=== PATIENT | male | born 1960 | race Caucasian/White ===

== ENCOUNTER 2016-11-30 00:40 | Inpatient (IN) | payer MEDICARE ==
[~2016-11-30] VITALS: Ht 170.2 cm; Wt 165.0 kg
--- NOTE | ~2016-11-30 | DS ---
PATIENT'S NAME: EDUAR ALCALA [facility] AGE: 56 Y [address] ROOM: [id number] [place], [place] [address] LOCATION: GPCU ADMIT DATE: 11/30/2016 Discharge Summary DISCHARGE DATE: 12/03/2016 FAMILY PHYSICIAN: Sunny Mulligan MD ATTENDING PHYSICIAN: Dov Contreras PRINCIPAL DISCHARGE DIAGNOSIS: Left cerebellar stroke (posterior inferior cerebellar artery distribution). SECONDARY DIAGNOSES: 1. Disequilibrium, secondary to cerebellar stroke. 2. Essential hypertension. 3. Chronic hypoxic respiratory failure, nocturnal hypoxemia documented during this admission by trend ox 12/02/2016 and 12/03/2016 qualifying for home oxygen therapy. In addition, he desaturates best with ambulation and at rest, needs 24-hour oxygen therapy. 4. Obstructive sleep apnea and likely obesity hypoventilation syndrome. 5. Morbid obesity. 6. Chronic pain syndrome. 7. Acute abdominal pain with transient ileus. 8. New diagnosis of diabetes mellitus, type 2. 9. Ascending aorta moderately dilated at 4.4 cm. CONSULTATIONS: 1. Dr. Randall of Neurology. 2. Dr. Soliman of the acute rehab department. BRIEF HISTORY: Mr. Alcala is a 56-year-old, morbidly obese, male who had been traveling and was in [place] where he spent the night in a hotel and was unable to get his balance. He presented to a hospital there and CT of his head was negative. They wanted to observe him, but he left and drove to [place]. So, he will be closer to home and presented to our hospital on the . He was here and presented with difficulty with his balance tending to sway to the right. He denied vertiginous symptoms. He did not have any ringing in the ears or hearing loss. He did not have chest pain. He had some history of shortness of breath, but not at the time of presentation. MRI was obtained and Dr. Randall was consulted. He was started on aspirin and statin. He had not been on aspirin prior to admission to the hospital. He was found to be hypoxic. He was not started on nasal cannula and treated with his home CPAP settings. The patient had hemoglobin A1c, which was found to be 6.5. He was advised that this is diagnostic of diabetes. He was seen by the music educator this morning. He was instructed in diet and exercise by the educator and myself. He is advised to eat low-glycemic index foods and have a low-carb PATIENT'S NAME: EDUAR ALCALA [facility] AGE: 56 Y [address] ROOM: [id number] [place], [place] [address] LOCATION: GPCU ADMIT DATE: 11/30/2016 Discharge Summary DISCHARGE DATE: 12/03/2016 FAMILY PHYSICIAN: Sunny Mulligan MD ATTENDING PHYSICIAN: Dov Contreras A diet and increase his exercise and lose weight. He has chronic pain. He is on multiple narcotics including fentanyl patch. He was advised to discuss with Dr. Mulligan and gradually weaning these because of the risk associated with narcotic and benzo use. He remained hypoxic during the hospitalization and had a trend ox last night, which shows he requires the oxygen and even during the day as above. He will be going home on 2 L of oxygen for 24 hours. He is advised to have a retitration sleep study, so that he can have his equipment titrated with the use of oxygen. PROCEDURES: 1. Echocardiogram on 11/30/2016 technically difficult study with estimated EF of 50% to 60%, but wall motion abnormalities could not be sent. He has mild concentric LVH, diastolic function indeterminant because of an adequate evaluation. The left atrium mildly dilated with ascending aorta moderately dilated at 4.4 cm. 2. Carotid artery Dopplers. Right internal carotid artery with mild plaque at 1% to 39% stenosis and same on the left. The right and left vertebral arteries had the antegrade flow. Because of the dilated aortic root, I have recommended that he see a head filter tank tender helper. Since he lives in [place], he and his elected to see Dr. Almanza when he has clinic hours in [place] regarding his dilated aortic root. The patient and his were in agreement with the plan. So, we discussed in detail at his bedside this afternoon. INSTRUCTIONS AT DISCHARGE: Diet: ADA 2000 calories with 2 g sodium restriction. Activity: As tolerated with a walker. FOLLOWUP: With Dr. Mulligan, his PCP, hopefully this week, but if not, by next Friday; Dr. Odonnell in 2 weeks; Dr. Randall in 1 month; Dr. Almanza of Cardiology in [place] within the next month; and he should return to [place] for repeat retitration polysomnography because of suspected inadequate pressure currently and so that equipment can be updated with bleeding in oxygen. MEDICATIONS AT THE TIME OF DISCHARGE: 1. Aspirin 81 mg p.o. daily. 2. Lipitor 80 mg p.o. q.h.s. 3. Carbidopa/levodopa 2 tablets q.h.s. 4. Fentanyl 25 mcg patch. 5. Ibuprofen 800 mg every 8 hours p.r.n. pain. 6. Prednisone that he was started on when he was admitted here has been stopped. PATIENT'S NAME: EDUAR ALCALA [facility] AGE: 56 Y [address] ROOM: [place] [address] [facility] ADMIT DATE: 11/30/2016 Discharge Summary DISCHARGE DATE: 12/03/2016 FAMILY PHYSICIAN: Sunny Mulligan MD ATTENDING PHYSICIAN: Dov Contreras 7. I will not give him any inhalers. His lungs are clear today and he may need pulmonary evaluation as an outpatient. 8. He can take Tylenol p.r.n. 9. Alprazolam 0.25 mg p.o. daily p.r.n. He is also encouraged to wean this. 10. Dilaudid 4 mg 1 tablet every 8 hours and wean further as tolerated. 11. He can take Tums for indigestion. 12. He is given a script for the Contour Next EZ meter strips. He is to check his glucose twice a day. He is being given a script for a front- wheeled walker because of his disequilibrium. CONDITION AT DISCHARGE: Improved, good. OTHER INSTRUCTIONS: Include no driving or alcohol use until next evaluation by Dr. Odonnell. Greater than 30 minutes was spent in the discharge process. ABHIJIT PERAZA MD LM/modl /[id number] CC: MD Sunny Wheeler MD Daniel J McGowan MD Larry R Mallin, MD d: 12/04/16 0235 t: 12/06/16 1849, DISCHARGE SUMMARY
--- NOTE | ~2016-11-30 | CON ---
PATIENT'S NAME: EDUAR ALCALA [facility] AGE: 56 Y [address] ROOM: [id number] [place], [place] [address] [facility] ADMIT DATE: 11/30/2016 Consultation DISCHARGE DATE: FAMILY PHYSICIAN: Sunny Mulligan MD ATTENDING PHYSICIAN: BRENT PONCE DATE OF CONSULTATION: 11/30/2016 REFERRING PHYSICIAN: VIVI CUELLAR MD The patient was seen on neurologic consultation on 11/30/2016 at 6:00 p.m. HISTORY OF PRESENT ILLNESS: I was asked to see Mr. Alcala who is a 56-year-old male patient essentially with a history of obstructive sleep apnea, BiPAP therapy during the nighttime, he also has a history of hypertension. The patient states that he was on a trip to [place] to visit a friend when he left the [facility] area and ended up in [place] on early Friday morning. He was in a hotel in [place] and woke up in the middle of the instrument setter to use the bathroom and suddenly he noted he was having difficulty with his balance. He said he was tending to fall towards one side he believes towards the right-side. He also complained about some subtle weakness on his right-side as well as dizziness. The dizziness was associated with what sounds like the vertigo with room spinning and him nearly having to nearly going to pass out. He states that he denied any vision problems such as double vision, but he was having difficulty with focusing on reading. He denied any facial numbness, but he did feel that his voice was a bit slurred over the past 24-hours so that he still is experiencing some mild dizziness not necessarily with head change position. He is noted to have no evidence of any focal weakness on exam and only a very subtle sign of dysmetria on [id number]-[id number]. Denied any sensory numbness to his hemiface or to his body. The patient was able to stand up, walk around slowly, and did not have worsening of his symptoms, but he did complain about a tendency to lean towards the right, he has actually been doing better. He says that he did have a headache in the back portion of his head noted on the day during Friday when he decided to come back to our area and check into the ER. The patient was sent for a MRI of the brain on the 30 of November here in our hospital, which found evidence for an acute stroke into the left posteroinferior cerebellar artery circulation that being involving the inferior portion of the left lobe of the cerebellum and connections towards the medulla. There did not appear to be any diffusion-weighted imaging prolongation in the medulla itself or elsewhere in the brainstem. The size of the stroke was fairly large around 5-cm with a bit of mild effacement of the adjacent cortical sulci. However, there is no evidence of any compression on to the ventricular system of the brain that would lead toward hydrocephalus. There was no noted mass effect essentially. No other findings were seen in the brain. No hemorrhage was seen in the area of the stroke or other areas of PATIENT'S NAME: EDUAR ALCALA [facility] AGE: 56 Y [address] ROOM: [id number] [place], [place] [address] [facility] ADMIT DATE: 11/30/2016 Consultation DISCHARGE DATE: FAMILY PHYSICIAN: Sunny Mulligan MD ATTENDING PHYSICIAN: BRENT PONCE A stroke was seen throughout the brain. PRIOR MEDICAL HISTORY: Obstructive sleep apnea, hypertension, morbid obesity, he uses a BiPAP mask on a daily basis. He denies having pain in the back of his head from the strap with the mask. SOCIAL HISTORY: He denies any alcohol use. He denies smoking, but he occasionally chews tobacco. FAMILY HISTORY: Consistent with coronary artery disease in his mother and diabetes also in mother. MEDICATIONS: Currently, include: 1. Lipitor 80 mg p.o. daily, started in the hospital. 2. Aspirin 81 mg p.o. daily. 3. Mometasone/formoterol 2 puffs b.i.d. inhalation p.r.n. REVIEW OF SYSTEMS: The patient has essentially history of hypertension well-controlled. He did not present with a very high blood pressure here, blood pressure is maintained in 130 systolic range. He presented on Friday instrument setter with new-onset of vertigo with a gait impairment, tendency to be wide-based gait and falling towards the right. He experienced some nauseousness and vomiting though he is feeling better currently. He is found to have an evidence of an acute stroke into the inferior lobe of the left hemisphere of the cerebellum. The extension of the stroke did not appear to affect the brainstem though likely inferior peduncle, attachments to the brainstem are involved due to the patient having vertiginous symptoms, which are very common in pica syndrome. Did not have any hemifacial sensory loss or hemibody loss of sensation. He denies any focal weakness. He does complain about subtle problem with his vision and perhaps skew deviation on looking towards the right. PHYSICAL EXAMINATION: VITAL SIGNS: Showed a pulse of 78 and regular, occasional PVCs with no evidence of any arrhythmia, respiration rate 16, blood pressure 138/78, and temperature is afebrile. NEUROLOGIC: Cranial nerves: Pupils are equal and reactive to light and accommodation. On right gaze, there is a mild complaint of skew deviation seen 2 finger hoyw-ys-clfm only on right gaze. There is no loss of vision in his visual field. I did not appreciate any ophthalmoplegia. There was no nystagmus seen on exam. There was normal facial symmetry and sensation in V1 PATIENT'S NAME: EDUAR ALCALA [facility] AGE: 56 Y [address] ROOM: [address] [address] LOC[facility]: [facility] ADMIT DATE: 11/30/2016 Consultation DISCHARGE DATE: FAMILY PHYSICIAN: Sunny Mulligan MD ATTENDING PHYSICIAN: BRENT PONCE through V3 distribution. Neck essentially supple on flexion and extension. He did have tenderness in the posterior portion of the neck somewhat more in the back occiput extending to the left paraspinal muscles. Some focal tenderness just to palpation in the posterior aspect of the neck extending a few inches below the occiput. No tenderness into the shoulders or into the arms. There was full power proximally and distally in the upper and lower extremities. There was a subtle finding of dysmetria on situga-yq-tnut that is hardly noticeable presently. Rapid alternating hand movements were intact and not asymmetrical. Sensory exam revealed normal touch sensation to light touch and pinprick. Reflexes were symmetric at +1 at the biceps, triceps, brachioradialis, patella, +1. Ankle jerks were +1. Reflexes downgoing. IMPRESSION: The patient thankfully had very mild symptoms of a stroke only involving the cerebellum. Strokes are usually quite recoverable from though this is a fairly large size stroke 5-cm. Over the course of the next few days, I recommended the patient somewhat take it easy because sometimes there is some secondary swelling associated with a cerebellar stroke and they can indeed expand with some edema and block the 4th ventricle. However, there is no evidence of this on the current scan and the patient is feeling well. He does not have any symptoms that are suggestive that they are getting worse; in fact, his vertigo has improved and he has no nauseousness presently. His findings on exam are very subtle as noted by the right iidfpe-ib-bftb dysmetria. Not exactly sure as to why he has dysmetria on the right-side with the cerebellar stroke being on the left, this is often a crossed type of connection and some cerebellar findings. Does not have any hemisensory problems, which to me suggests that the brainstem did not have any infarction, the pica distribution supplies the inferior portion of the cerebellum. We did a CT angiogram to make sure there was no evidence of a dissection. The vertebral arteries appeared to be patent and no evidence of any basilar artery process. The carotid circulation appeared to be normal. Overall, the etiology for the patient's stroke is unclear, related stroke to the pica distribution is often seen here in Neurology with the patient having some injury focally, sometimes benign, even occurring many days prior to the stroke. Just by history, he said approximately 1-1/2 weeks ago, he was working doing his usual fixing of cars and he got up from underneath the car and hit his head in the back of a metal portion of the car, he did feel as though he had a headache or head pain in the back-portion of his head during the week as it is where the headache seemed to be involved during the stroke on Friday in the instrument setter. He does not have a headache presently. It is quite possible even with a normal CT angiogram to have had a small injury to the vertebral artery causing a temporary low flow state in that artery and developing a small thrombus in situ in the left vertebral and having it blocked the pica distribution and it is just a conjecture and we have no proof of this. Isolated finding of a pica stroke is almost always locally thrombotic and PATIENT'S NAME: EDUAR ALCALA [facility] AGE: 56 Y [address] ROOM: [place] [address] LOCATION: GPCU ADMIT DATE: 11/30/2016 Consultation DISCHARGE DATE: FAMILY PHYSICIAN: Sunny Mulilgan MD ATTENDING PHYSICIAN: BRENT PONCE almost never is associated with a cardioembolic event since the pica takes a very sharp turn off the vertebral artery, it is very small, it is prone to thrombosis especially if there is a sudden injury smacked to the back of the head or a sudden torsion of the neck. Overall, he will do well. He is making a good recovery, but we have to watch him somewhat closely over the next 24 to 48 hours and he could participate in physical therapy slowly. Place the patient on aspirin as well as Lipitor 80 mg p.o. daily and this for plaque stabilization for general poststroke management. I believe that he is going to do well and will make a full complete recovery from my standpoint. I would like to see the patient on neurologic follow up when he does leave the hospital sometime within the month. MD SHANE BORJAS/modl /[id number] d: 12/02/16 0000 t: 12/24/16 1609, CONSULTATION REPORT
--- NOTE | ~2016-11-30 | ER ---
PATIENT'S NAME: EDUAR ALCALA [facility] AGE: 56 Y [address] ROOM: [place], [place] [address] LOCATION: [facility] ADMIT DATE: 11/30/2016 ER/Outpatient Report DISCHARGE DATE: FAMILY PHYSICIAN: Sunny Mulligan MD ATTENDING PHYSICIAN: Mike Goldberg Admission date and time documented in the medical record. I saw the patient at 0105 hours. CHIEF COMPLAINT: Vertigo, cough, shortness of breath, headache, nausea, vomiting. HISTORY OF PRESENT ILLNESS: This patient is a 56-year-old male who about 24 hours ago at about 0300 hours on Friday morning was in a motel in [place]. He got up to go to the bathroom and could not stand because of severe vertigo. Room was spinning and he was spinning. Got nauseated and vomited multiple times. He went to the emergency department later that morning and had evaluation. He had a CT scan of the head which was negative. He had laboratory studies. He was diagnosed with acute vertigo and was started on Antivert. He has only taken one Antivert around noon. They wanted to keep him in the hospital but he wanted to come home and come to [facility] if possible to get admitted. He thus presented here for evaluation. He continues to have vertigo, dizziness. He has a generalized headache. He continues to be nauseated with intermittent vomiting. He has an audible expiratory wheeze and is short of breath. No chest pain. No fever, chills, sweats. No syncope. No fall or trauma. Just cannot stand because he has no sense of balance. Generalized headache. No eyes, ears, nose, throat, neck, or spine pain. No abdominal pain. No diarrhea. No incontinence. No joint or muscle swelling, redness, or pain. He does have intermittent bilateral lower leg edema. No history of neuro changes, psych issues, endocrine problems. The patient does have COPD, obstructive sleep apnea, and uses CPAP at night. He was 78% oximetry on room air on arrival here to the emergency department. HOME MEDICATIONS: See attached medication list. ALLERGIES: MORPHINE. SOCIAL HISTORY: Nonsmoker, nondrinker. Does chew tobacco. SIGNIFICANT PAST MEDICAL HISTORY: COPD, obstructive sleep apnea, tobacco abuse, peripheral edema, questionable PATIENT'S NAME: EDUAR ALCALA [facility] AGE: 56 Y [address] ROOM: [place] [address] LOCATION: [facility] ADMIT DATE: 11/30/2016 ER/Outpatient Report DISCHARGE DATE: FAMILY PHYSICIAN: Sunny Mulligan MD ATTENDING PHYSICIAN: Mike Goldberg congestive heart failure. OPERATIONS: Left hip surgery, tonsillectomy. REVIEW OF SYSTEMS: All systems reviewed by me are negative with the exception of those discussed in the history of present illness. PHYSICAL EXAMINATION: VITAL SIGNS: Blood pressure 160/109, pulse 69 regular, respirations 18, O2 saturation on room air is 78% oxygenating. We did give up into the mid low 90s. HEAD: Normocephalic. No abrasion, contusion, laceration, swelling of the scalp or face. EYES: Extraocular muscles intact. PERRL. Mild horizontal nystagmus. EARS: Clear TMs bilaterally. NOSE: Clear. THROAT: Clear. Mucous membranes moist. TEETH/JAW: Intact. NECK: No nuchal rigidity. No thyromegaly. No cervical adenopathy. No tenderness. SPINE: Nontender. No deformity. LUNGS: Generalized expiratory wheezes, some rhonchi, coarse cough, decreased air flow. HEART: Regular. Pulses palpable. The patient is mildly tachypneic. No chest wall or ribcage pain to palpation. ABDOMEN: Large, obese. Soft, nontender. Active bowel tones. EXTREMITIES: Without peripheral edema, cyanosis, or deformity. NEUROVASCULARLY: Intact. SKIN: Clear. No skin eruptions or rash. LABORATORY DATA AND X-RAYS: White count is 12,800, 80 segs, 12 lymphs, 6 monos, 1 eos, 1 baso. Hemoglobin is 14.9, with hematocrit of 43.4, platelet count is 306,000. PTT was 28, pro- time was 11, with an INR of 1.05. CMS was normal except for an elevated CO2 content of 34, low anion gap at 99.6. Elevated glucose 135. CPK was 176. Point of care cardiac enzymes were normal. CRP was 2.22. Thyroid was normal. ProBNP was normal at 93. Did not repeat a chest x-ray or head CT. Did not perform an EKG. EMERGENCY DEPARTMENT COURSE: Did give the patient DuoNeb respiratory nebulizer treatment here in the emergency department. Did give the patient IV Valium 4 mg and oral Antivert 25 mg here in the emergency department. PATIENT'S NAME: EDUAR ALCALA [facility] AGE: 56 Y [address] ROOM: [place], [place] [address] LOCATION: [facility] ADMIT DATE: 11/30/2016 ER/Outpatient Report DISCHARGE DATE: FAMILY PHYSICIAN: Sunny Mulligan MD ATTENDING PHYSICIAN: Mike Goldberg IMPRESSION: 1. Benign positional vertigo. 2. Exacerbation of his chronic obstructive pulmonary disease. 3. History of obstructive sleep apnea. 4. Exogenous obesity. 5. Hypertension. PLAN: The patient was given the DuoNeb respiratory nebulizer treatment in the emergency department. I did start an IV normal saline at 100 mL an hour. Gave him Valium 4 mg IV in the emergency room, Antivert 25 mg orally in the emergency room, and Zofran 8 mg IV in the emergency room for nausea and vomiting. Discussed the patient with Dr. Contreras, the hospitalist. Dr. Contreras is coming to the emergency room to evaluate the patient and admit the patient to the hospital for further evaluation and treatment. Discussion ensued with the patient concerning my findings and recommendation, he understands. MD BRITT LANG/sintial /[id number] d: 11/30/16 0357 t: 11/30/16 1809, OUTPATIENT REPORT
--- NOTE | ~2016-11-30 | HP ---
[facility] AGE: 56 Y [address] ROOM: [place] [address] LOCATION: [facility] ADMIT DATE: 11/30/2016 History & Physical DISCHARGE DATE: FAMILY PHYSICIAN: Sunny Mulligan MD ATTENDING PHYSICIAN: Mike Goldberg DATE OF SERVICE: CHIEF COMPLAINT: Imbalance and dizziness. HISTORY OF PRESENT ILLNESS: A 56-year-old, morbidly obese gentleman with past medical history of obstructive sleep apnea, COPD, who was traveling from [facility] to [place], stopped at [place] and stayed overnight in a hotel. He woke up tonight in the morning to go to the bathroom and he just could not find his balance. He said he tends to fall towards the right side. He slept in the hotel and ate in the morning. He presented to the hospital there. Basic lab work was done, which was pretty much unremarkable. CAT scan of the head was done, which was nonsignificant for any acute intracranial changes. Chest x-ray was negative. He was advised to stay in the hospital over there, but he wanted to come to [place] and stay closer to his house. On my encounter, he is saying that he is having trouble finding his balance and he tends to sway on the right side. He does not complain of that room spinning around him or he is going to pass out. He denied any pain in the ear, any ringing in the ear, or any hearing loss. He denied any chest pain. He said he does get some sometimes shortness of breath. He is not complaining of shortness of breath right now. No sputum production. No fever, no chills, no constipation, no diarrhea, no swelling in the legs. REVIEW OF SYSTEMS: All other systems reviewed and were negative except as mentioned in the HPI. ALLERGIES: NO KNOWN DRUG ALLERGIES. PAST MEDICAL HISTORY: 1. Obstructive sleep apnea. 2. Morbidly obese. 3. Hypertension. 4. COPD. SOCIAL HISTORY: Chewed tobacco in the past. PATIENT'S NAME: [facility] AGE: 56 Y [address] ROOM: [place] [address] LOCATION: [facility] ADMIT DATE: 11/30/2016 History & Physical DISCHARGE DATE: FAMILY PHYSICIAN: Sunny Mulligan MD ATTENDING PHYSICIAN: Mike Goldberg FAMILY HISTORY: Significant for diabetes and coronary artery disease in mother. MEDICATIONS: Being reconciled right now. PHYSICAL EXAMINATION: VITAL SIGNS: Blood pressure 148/74, 16, saturating 78% on room air, and had to be put on supplemental oxygen, afebrile. GENERAL: No acute distress, morbidly obese gentleman, alert and oriented x3. HEENT: Head: Atraumatic, normocephalic. Eyes: Nonicteric. No pallor. Oropharynx: Moist mucous membranes. Ear examination did not reveal any significant findings. CARDIOVASCULAR: S1, S2. No murmurs, gallops, or rubs. LUNGS: Clear to auscultation bilaterally. ABDOMEN: Obese, soft, nontender, and nondistended. Bowel sounds are present. EXTREMITIES: No clubbing, cyanosis, or edema. NEURO: No nystagmus could be elicited on [place]-Hallpike maneuver. Cranial nerves 2 through 12 are intact. No motor or sensory deficit. Both-sided cerebellar function intact. LABORATORY DATA: Lab work done in our emergency department including a CBC and CMP only showed a bicarb of 34, which was impressive. Rest of the lab work was pretty much unremarkable. ASSESSMENT AND PLAN: 1. Vertigo, likely central in origin. We are going to obtain MRI in the morning. Treat the vertigo with Benadryl and Valium in the interim. 2. Acute hypoxic respiratory failure, on chronic hypoxic respiratory failure. We are going to get ABG chest x-ray. Supplemental oxygen and home setting of CPAP. We will see what the pH level is and noninvasive ventilation if required. 3. Morbid obesity. 4. Hypertension. We will continue to monitor the blood pressure. Aspirin and Lipitor tonight. EKG will be done. Further recommendation will depend on his progress in the hospital as well as MRI findings. MD SKYE PENA/edmundo PATIENT'S NAME: EDUAR ALCALA [facility] AGE: 56 Y [address] ROOM: [place], [place] [address] LOCATION: [facility] ADMIT DATE: 11/30/2016 History & Physical DISCHARGE DATE: FAMILY PHYSICIAN: Sunny Mulligan MD ATTENDING PHYSICIAN: Mike Goldberg /[id number] D: [id number] T: [id number] HISTORY & PHYSICAL
--- NOTE | ~2016-11-30 | ENPV ---
Carotid Duplex Study Demographics Patient Name EDUAR ALCALA Date of Study 11/30/2016 Patient Number [id number] Gender Male Date of 1960 Age 56 Visit Number [id number] Height 67 Accession Number [id number] Weight 363.01 Referring Lesa Argueta MD Interpreting Dennis Bourne MD Physician Isaak Weiss MD Physician Ben Browning MD Physician Ordering Physician Lesa Argueta MD Photography And Prints Curator Forestry Fire Aid Rupal Angel [facility], [facility] Conclusions Summary The right internal carotid artery has mild, 1-39%, plaque and stenosis. The left internal carotid artery has mild, 1-39%, plaque and stenosis. The right vertebral artery is present with antegrade flow. The left vertebral artery is present with antegrade flow. Procedure Type of Study: Cerebral:Carotid, Carotid Doppler Bilateral. Indications for Study:CVA. Appropriate Use Criteria:6 Blood Pressure:Right arm 131/62 mmHg. Patient Status:Routine. Study Location:Inpatient Portable. Technical Quality:Adequate visualization. Velocities are measured in cm/s ; Diameters are measured in cm Carotid Right Measurements Carotid Left Measurements + +--------+--------+ + + + +--------+ --------+ + + !Location !PSV !EDV !Angle !%Stenosis ! !Location !PSV ! EDV !Angle !%Stenosis ! + +--------+--------+ + + + +--------+ --------+ + + !Prox CCA !94 !14 !60 ! ! !Prox CCA !132 ! 12 !50 ! ! + +--------+--------+ + + + +--------+ --------+ + + !Dist CCA !92 !23 !60 ! ! !Dist CCA !110 ! 9 !60 ! ! + +--------+--------+ + + + +--------+ --------+ + + !Prox ICA !60 !22 !60 ! ! !Prox ICA !75 ! 23 !60 ! ! + +--------+--------+ + + + +--------+ --------+ + + !Dist ICA !75 !24 !60 ! ! !Dist ICA !63 ! 20 !46 ! ! + +--------+--------+ + + + +--------+ --------+ + + !Prox ECA !102 ! !60 ! ! !Prox ECA !138 ! !48 ! ! + +--------+--------+ + + + +--------+ --------+ + + !Vertebral !37 ! !60 ! ! !Vertebral !44 ! !60 ! ! + +--------+--------+ + + + +--------+ --------+ + + !Subclavian !124 ! ! ! ! !Subclavian !122 ! ! ! ! + +--------+--------+ + + + +--------+ --------+ + + - There is antegrade vertebral flow noted on the right side. - There is antegrade verte bral flow noted on the left side. - Add'l Measurements:ICAPSV/CCAPSV 0.8.ICAEDV/CCAEDV 1.74. - Add'l Measurements:ICAPS V/CCAPSV 0.57.ICAEDV/CCAEDV 1.87. Signature dtt: JEFFERSON SHELL dtjoanne: 11/30/16 1252 Physician Self Edit
--- NOTE | ~2016-11-30 | PUL ---
PATIENT'S NAME: EDUAR ALCALA [facility] AGE: 56 Y [address] ROOM: [facility] [place], [place] [address] LOCATION: [facility] ADMIT DATE: 11/30/2016 Pulmonary DISCHARGE DATE: 12/03/2016 FAMILY PHYSICIAN: Sunny Mulligan MD ATTENDING PHYSICIAN: Dov Contreras NAME OF PROCEDURE: Overnight Pulse Oximetry DATE OF PROCEDURE: December 03 to December 04, 2016 REASON FOR EXAM: Nocturnal hypoxemia. RESULTS: The test were performed on CPAP. Recording time was 6 hours and 22 minutes; total valid sampling time was 6 hours and 22 minutes. Highest pulse noted was 144 beats per minute, and lowest pulse noted was 59 beats per minute. Highest SpO2 was 92%, lowest SpO2 was 73%, and mean SpO2 was 83.9%. Patient three longest duration with saturation below 88% where 3 hours and 35 minutes, 2 hours and 33 minutes and 3 minutes. The desaturation event index was slightly elevated at 8.8. REFERRING PHYSICIAN: The patient has evidence of significant nocturnal high even on CPAP. Would qualify for supplemental oxygen as per Medicare criteria, night CPAP download data should be reviewed to see adequate control of the obstructive sleep apnea if that is the indication for using CPAP. MD ZOË CALLEJAS/margarette /[id number] dtt: 12/12/16 1617 UMER MEENAKSHI dtd: 12/06/16 0842
--- NOTE | ~2016-11-30 | CON ---
PATIENT'S NAME: SHANDRA ALCALALAS [facility] AGE: 56 Y [address] ROOM: [place] [address] LOCATION: [facility]U ADMIT DATE: 11/30/2016 Consultation DISCHARGE DATE: FAMILY PHYSICIAN: Sunny Mulligan MD ATTENDING PHYSICIAN: BRENT PONCE REFERRING PHYSICIAN: VIVI CUELLAR MD Consult for Dr. Mcfadden. This pleasant 56-year-old gentleman is referred for rehab/GIRP evaluation. He was admitted on 11/30/2016 with sudden onset of dizziness and unable to walk when standing up and really tending to go down to right side, unable to support himself well, finds difficult to find his balance and is worse. He weighs right side more. No ear trouble, no ringing in the ear, no earache, no difficulty with hearing. He is not short of breath, but rarely on and off. No cough, no expectoration. No fever. Denied any chest pain. No double vision. No headache. PAST MEDICAL HISTORY: Past history of significant like this episode none; however, he has COPD. Hypertension. He is morbidly obese. Alert and oriented x3. At the present time, he has no nystagmus, denied any double vision. No ringing in the ears. No difficulty with hearing. Otherwise, he is feeling a little bit unsteady to the right; otherwise, the rest of cranials are within normal limits. VITAL SIGNS: Blood pressure 125/63, temperature 98.2, pulse 66, respirations 18. He is 5 feet 7 inches and weighs 165.0 kg. No facial droop. No weakness. No difficulty swallowing. Speech is clear and not wet. He can move bilateral upper and lower extremity well and muscle strength is within normal limits. He is on the following medications. 1. Glucagon. 2. Dextrose. [facility] 56 Y [address] ROOM: [place] [address] LOCATION: [facility] ADMIT DATE: 11/30/2016 Consultation DISCHARGE DATE: FAMILY PHYSICIAN: Sunny Mulligan MD ATTENDING PHYSICIAN: KHALID,KENNEDY A 3. Glucose. 4. Insulin aspart, mild scale. 5. Sinemet. 6. Aspirin. 7. Dilaudid. 8. Albuterol. 9. Valium. 10. Tylenol. 11. Protonix. 12. Zofran. 13. Fentanyl. 14. Lipitor. 15. Dulera. 16. Desyrel. 17. Flexeril. 18. Xanax. 19. NaCl 0.9%. 20. Deltasone. ASSESSMENT AND PLAN: He can ambulate at the present time about 40 feet x1, but he is unsteady and tends to go down and he tries to support himself carefully. He would otherwise go down to the right. At the present time, neurologically otherwise intact. He has been initiated on PT, OT, which I will continue and Speech which I will continue; however, I will watch him and if unable to be discharged at a modified independent level to home, I will be happy to reevaluate for rehab admission. I did discuss all this with him. He verbalized understanding and agreement with plan of care. However, if he is discharged, I would like to see him in followup in about 2 weeks after discharge in my office. Meanwhile, he should not drive and/or operate any mechanical device until he is reevaluated and he should avoid drinking also. Thank you for this referral. MD ANGELITA SILVERMAN/sintial /[id number] d: 12/01/16 1138 t: 12/02/16 0709, CONSULTATION REPORT
--- NOTE | ~2016-11-30 | ECHO ---
Transthoracic Echocardiography Report (TTE) Demographics Patient Name EDUAR ALCALA Date of Study 11/30/2016 Patient Number [id number] Visit Number [id number] Date of 1960 Room Number G6340 Gender Male Number Age 56 year(s) Referring Isaak Weiss MD Watershed Engineer Rupal Angel RVT, Physician Ben Browning RDCS, MD Physician Interpreting Moriah Arriaza Bolt Sorter Physician Supervising Ordering Lesa Argueta MD, MD/MLP Physician Nurse Stress Feed Mill Supervisor Conclusions Contractility Score Summary Normal Left Ventricular contractility was noted. Summary Technically difficult exam with suboptimal images despite use of Definity contrast. The estimated left ventricular ejection fraction is 55-60%. Unable to comment on regional wall abnormalities Mild concentric left ventricular hypertrophy. Diastolic function indeterminate due to inadequate tissue doppler evaluation. The left atrium is mildly dilated. The ascending aorta appears moderately dilated. The maximum diameter measures 4.4 cm. Procedure Type of Study TTE procedure:2D Echocardiogram, Echo with Contrast. Procedure Date Date: 11/30/2016 Start: 12:20 PM Study Location: Inpatient Portable Technical Quality: Fair due to body habitus. Indications:CVA. Appropriate Use Criteria: 8 Patient Status: Routine Contrast Medium: Definity. Amount - 3 ml Rhythm: NSR HR: 82 bpm BP: 153/78 mmHg M-Mode/2D Measurements LV Diastolic Dimension: 5.45 cm LV Systolic Dimension: 3.86 cm LV Septum Diastolic: 1.51 cm LV PW Diastolic: 1 cm AO Root Dimension: 3.5 cm Cardiac Output: 9.27 l/min AV Cusp Separation: 2.7 cm RV Diastolic Dimension: 3.53 cm LA volume: 79 ml LVOT: 2.6 cm RV Base: 3.99 cm LVOT VTI: 21.3 cm RV Mid: 3.09 cm LV Stroke volume: 113.03 ml TAPSE: 3.37 cm TDI-S': 18 cm/s Doppler Measurements AV Peak Velocity: 1.23 m/s MV Peak E-Wave: 0.94 m/s AV Peak Gradient: 6.05 mmHg MV Peak A-Wave: 0.81 m/s AV Mean Gradient: 4 mmHg MV E/A Ratio: 1.17 LVOT Peak Velocity: 1.1 m/s MV P1/2t: 80 msec TR Gradient:9.86 mmHg PV Peak Velocity: 1.14 m/s Estimated RAP:5 mmHg PV Peak Gradient: 5.2 mmHg Estimated RVSP: 15 mmHg Estimated PASP: 14.86 mmHg E' Septal Velocity: 0.11 m/s A' Septal Velocity: 0.14 m/s E' Lateral Velocity: 0.09 m/s A' Lateral Velocity: 0.07 m/s Findings Left Ventricle Mild concentric left ventricular hypertrophy. Diastolic function indeterminate due to inadequate tissue doppler evaluation. Right Ventricle Not well visualized but appears within normal limits Left Atrium The left atrium is mildly dilated. Right Atrium Not well visualized Mitral Valve Normal mitral valve structure and function. Aortic Valve The aortic valve is mildly sclerotic. Tricuspid Valve Normal tricuspid valve structure and function. Pulmonic Valve Normal pulmonic valve structure and function. Pericardial Effusion No evidence of pericardial effusion. Miscellaneous The ascending aorta appears moderately dilated. The maximum diameter measures 4.4 cm. Pleural Effusion No evidence of pleural effusion. Contractility Score LV regional wall motion:(0-Non visualized 1-Normal 2-Hypokinesis 3-Akinesis 4-Dyskinesis 5-Aneurysm) Signature dtt: RAYNA TATUM dtd: 11/30/16 1220 Physician Self Edit
[2016-11-30 01:39] LABS: BASOPHIL # 0.1 K/uL (0.0-0.2); BASOPHIL % 0.5 %; EOSINOPHIL # 0.1 K/uL (0.0-0.5); EOSINOPHIL % 0.8 %; HEMATOCRIT 43.4 % (37.0-53.0); HEMOGLOBIN 14.9 g/dL (12.0-17.0); IMMATURE GRANULOCYTE % 0.3 %; LYMPHOCYTE # 1.5 K/uL (0.8-4.0); LYMPHOCYTE % 12.1 %; MCHC 34.3 gm/dL (32.0-36.5); MCV 87.5 fl (83.0-98.0); MONOCYTE # 0.8 K/uL (0.0-1.0); MPV 9.6 fl (9.4-12.4); NEUTROPHIL # (ANC) 10.3 K/uL (1.4-9.0); NEUTROPHIL % 80.3 %; NRBC % 0 /100WBC (0-0.00); PLATELET COUNT 306 K/uL (150-450); RBC 4.96 M/uL (4.00-6.00); RDW-CV 12.6 % (11.9-14.6); WBC 12.8 K/uL (4.0-11.0)
[2016-11-30 01:49] LABS: INR - (THERAPEUTIC) 1.05 (0.92-1.07); PTT 28 SECONDS (25-32)
[2016-11-30 02:02] LABS: ALBUMIN 3.3 gm/dL (3.5-5.0); ALK PHOS 101 IU/L (33-138); ALT 21 IU/L (12-78); ANION GAP 9.6 (10.0-19.0); AST 19 IU/L (10-40); BLOOD UREA NITROGEN 13 mg/dL (6-24); CALCIUM 8.8 mg/dL (8.5-10.5); CHLORIDE 101 mMol/L (96-110); CO2 34 mMol/L (22-32); CPK 176 IU/L (35-332); CREATININE 1.1 mg/dL (0.6-1.3); POTASSIUM 4.6 mMol/L (3.7-5.1); SODIUM 140 mMol/L (135-145); TOTAL BILIRUBIN 0.4 mg/dL (0.0-1.5); TOTAL PROTEIN 7.4 g/dL (6.0-8.4)
[2016-11-30] MEDS ORDERED: SINEMET 25-1001 EACH PO (04:30)
[2016-11-30] MEDS ORDERED: XANAX0.25 MG PO (04:30)
[2016-11-30] MEDS ORDERED: DILAUDID 4MG4 MG PO (04:32)
[2016-11-30] MEDS ORDERED: FLEXERIL10 MG PO (04:33)
[2016-11-30] MEDS ORDERED: DESYREL50 MG PO (04:34)
[2016-11-30] MEDS ORDERED: MOTRIN800 MG PO (04:35)
[2016-11-30] MEDS ORDERED: DURAGESIC 25MC25 MCG TOP (04:37)
[2016-11-30 05:33] LABS: BICARBONATE 37.2 mmol/L (18.0-23.0); PCO2 69 mmHg (35-45); PO2 52 mmHg (80-90)
[2016-11-30 05:40] LABS: BASOPHIL # 0.1 K/uL (0.0-0.2); BASOPHIL % 0.5 %; EOSINOPHIL # 0.2 K/uL (0.0-0.5); EOSINOPHIL % 1.4 %; HEMATOCRIT 43.2 % (37.0-53.0); HEMOGLOBIN 14.7 g/dL (12.0-17.0); IMMATURE GRANULOCYTE # 0.1 K/uL (0.0-0.3); IMMATURE GRANULOCYTE % 0.5 %; LYMPHOCYTE # 2.4 K/uL (0.8-4.0); LYMPHOCYTE % 18.9 %; MCH 30.1 pg (27.0-34.0); MCV 88.3 fl (83.0-98.0); MONOCYTE # 0.8 K/uL (0.0-1.0); MONOCYTE % 6.7 %; MPV 9.8 fl (9.4-12.4); NEUTROPHIL # (ANC) 8.9 K/uL (1.4-9.0); NRBC % 0 /100WBC (0-0.00); PLATELET COUNT 290 K/uL (150-450); RBC 4.89 M/uL (4.00-6.00); RDW-CV 12.5 % (11.9-14.6); WBC 12.4 K/uL (4.0-11.0)
--- NOTE | 2016-11-30 05:49 | NUR ---
0355: PT FROM [place]. WAS TRAVELING BACK FROM [place] AFTER VISITING SON. HE WENT TO THE ER AT AN [facility] FOR DIZZINESS, N/V. THEY RAN SOME TESTS AND ADVISED HIM TO BE ADMITTED FOR OBSERVATION BUT HE REFUSED. HIM AND HIS TRAVELED 8 HRS TO BE ADMITTED HERE. IN ER, HE WAS GIVEN VALIUM, MECLIZINE, AND ZOFRAN. HE WAS 78% ON ROOM AIR AND WAS PLACED ON 4L PER NC. PT IS A&O X3. HE DID HAVE A SMALL EPISODE OF DIZZINESS WHEN TRANSFERRING FROM THE CART TO THE BED. IS AT BEDSIDE. DR. PONCE SAW PT IN ER AND WROTE ORDERS THERE.
[2016-11-30 06:04] LABS: CALCIUM 8.8 mg/dL (8.5-10.5)
--- NOTE | 2016-11-30 07:05 | NUR ---
Significant Event: 0355: SEE ADMISSION NOTE. PT STARTED ON NS AT 100. VSS. ON 4L O2. WEARS CPAP AT NIGHT THAT WAS SET UP BY RT. CARBIDOPA GIVEN AT 0530 TO PREVENT MUSCLE CRAMPS. AT BEDSIDE. Follow up:
--- NOTE | 2016-11-30 12:09 | NUR ---
CONSULT RECEIVED PER STROKE PROTOCOL. WILL PROVIDE DIET ED PRIOR TO DC APPROPRIATE.
--- NOTE | 2016-11-30 19:07 | NUR ---
Significant Event: A/Ox3. Slurred mumbled speech. Equal strength bilaterally. Numbness/tingling to the R) lateral upper extremity. VSS on 4L NS with saturations in the low to mid 90s. R) AC NS 100ml/hr. SR with BBB. SBA. Voids per urinal. Positive MRI. Ischemia to the L) cerebellum. PT/OT/Speech, Dr. rowe and Dr. Caballero consulted. cooperative with [facility].
--- NOTE | 2016-12-01 03:47 | NUR ---
A&Ox3. Up with SBA. IV in L) AC at 100ml/hr NS. Wears 3L on CPAP at HS. Some dizziness noted with ambulation. No c/o nausea. Reports numbness and tinglying comes and goes. CT in AM of head and neck. Valium given at HS. No tremor noted to L) hand. To con't with POC.
--- NOTE | 2016-12-01 15:58 | NUR ---
Significant Event: A/Ox3. SBP-140-180. Afebrile. 2L NC with saturations in the low 90s. R) AC saline locked. Up with SBA/Family assist. Dizziness is improved in comparison to yesterday. Valium givex x1 for dizziness at 0753. Dilaudid given last at 0753 and Tylenol given at 1202 for occipital head ache with releif. Xanax given in AM atr 0753 for anxiety. Patients EF was 55-60% on echo. IVF discontinued.
--- NOTE | 2016-12-02 04:07 | NUR ---
A&Ox3. SBP 140s-160s. Afebrile. On CPAP at HS with 3L bled in. R) AC IV patent SL. Up with stand by assist. PRN Valium given x1 for dizziness. Scores 0 on stroke scale. No numbness or tingling or tremor noted. C/O slight occiptial h/a but denied tylenol. C/O abdominal pain 9/10 for most of NOC. Bleching and indigestion. Up to restroom frequently but only passes gas. GI cocktail given x1 and gas-x given x2. New order for gas-x Q4 PRN. EKG done for epigastric pain and is unremarkable. Troponin drawn and is clinically insignificant. Warm blankets applied to stomach for pain relief. Resting in bed now. Possible D/C in AM.
--- NOTE | 2016-12-02 14:45 | NUR ---
Introduced self and CM role to Jung Perdue" and his , Eva who was at bedside. Juan tells me that he lives at home in [place] with his and kids and plans to return there when he is dismissed. He manages his own medications at baseline and plans to continue to do so. PCP is , he is seen on a regular basis. He denies any needs for HHC upon dismissal. Would like to have a FWW when he goes home, left a script on the chart for to sign so Juan could obtain a FWW upon dismissal at the DME facility of his choice. is familiar with where they can use the script to obtain one. Juan has no concerns about going back home. He did have questions about his O2 which I told him he would need to talk with his RN or RT about. He states that he will do this. , Eva, also wanted to talk with Diabetic Education as well. Juan then told her that [facility] had been in already but they left a card so Eva could call them with any other questions, she states that she will do this later this afternoon. No other questions, needs or concerns. Plan home. Left CM contact information on his whiteboad incase any other questions come up re:dismissal plans. CM to continue to follow and assist.
--- NOTE | 2016-12-02 16:48 | NUR ---
Significant Event: A/O x3, cooperative with cares. VSS, SBPs 160-170s, HRs 60-70s, oxygen at 2 liters; CPAP at night. C/O buring in abd; stated that oral protonix did offer some relief. Up with assist of 1 et walker to bathroom; up in chair, ambulate in hallway Follow up: ? d/c today or tomorrow
--- NOTE | 2016-12-03 04:01 | NUR ---
A&Ox3. Cooperative with cares. Lost IV access. Recieved phenergan IM 25mg x1 for nausea. Emesis 200ml. Pulse ox study in progress. Sats around 88% on r/a. BP elevated in 190s. Neurology aware. Order to give labetolol IV to maintain BPs 160-200. IV protonix given x1. States had one loose stool this shift but is not observed. Sleeps on and off most of NOC. Possible D/C in AM.
[2016-12-03 04:32] LABS: ANION GAP 10.9 (10.0-19.0); CALCIUM 8.5 mg/dL (8.5-10.5); CREATININE 1.1 mg/dL (0.6-1.3); POTASSIUM 3.9 mMol/L (3.7-5.1)
--- NOTE | 2016-12-03 11:50 | NUR ---
Diabetes Education completed for this newly diagnosed type 2 patient, new meter is provided and demonstrated, will need script for Contour Next EZ strips. All topics on the Diabetes Survival Skills Assessment form discussed and patient states his mother has diabetes and he is very familar with the disease. The name and phone number are provided to patient for the Order Administrator in [place], [place] for on-going education and follow up. Unsure at this time if patient will be going home on meds for diabetes, A1C was 6.5 % on admission. Discussed risks of further heart disease, stroke, kidney and nerve complications and how we can reduce these risks of proper control of blood sugars. Recommended for patient to test blood sugar 2 times per day and record in log book, take to MD for evaluation. Consult placed for RD to educate patient prior to dismissal today, patient wants spouse to be present. Patient states understanding education provided.
--- NOTE | 2016-12-03 12:23 | NUR ---
Social visit with Juan, he tells me that he is hopefully going home later today. Diabetic Ed is going to come back up once his gets here so they can both listen to the teachings that he is going to have to have prior to dismissal. No concerns about going home. Script is on the chart and to be sent home with him upon dismissal. CM to continue to follow and assist.
[2016-12-03] MEDS ORDERED: ASPIRIN EC325 MG PO (13:00)
[2016-12-03] MEDS ORDERED: LIPITOR80 MG PO (13:06)
[2016-12-03] MEDS ORDERED: SINEMET 25-1001 EACH PO (13:08)
[2016-12-03] MEDS ORDERED: TUMS REGULAR ST1 TAB PO (13:26)
--- NOTE | 2016-12-03 15:24 | NUR ---
Significant Event: A/O x3, cooperative with cares. VSS, SBPs 130-160s, HRs 70-100s, oxygen at 2 liters. No c/o pain; states that abdomen is feeling better and not near as painful. Has been able to eat 2 meals today. Up with assist of 1 et walker to bathroom et chair; ambulate in [place] with therapy. Dismissal instructions given to patient et , verbalized understanding. Dismissed to front lobby per w/c accompanied by nursing assistants. Follow up:
[2017-01-02] MEDS ORDERED: CPAP INH (16:50)
[2017-01-02] MEDS ORDERED: LOPRESSOR25 MG PO (16:50)
[2017-01-02] MEDS ORDERED: OXYGEN M-15 INH (16:51)
== END 2016-12-03 15:20 | disposition disaster alternative care site (69) | DRG 64 ==
LOC: GMED 00:40 → GPCU 03:22
PROVIDERS: Emergency Medicine; Nurse Practitioner Family; ADMIT Internal Medicine
DX: I63.9 Cerebral infarction, unspecified (principal); J96.01 Acute respiratory failure with hypoxia; J44.1 Chronic obstructive pulmonary disease with (acute) exacerbation; Z68.43 Body mass index [BMI] 50.0-59.9, adult; G47.33 Obstructive sleep apnea (adult) (pediatric); H18.10 Bullous keratopathy, unspecified eye; I10 Essential (primary) hypertension; E66.01 Morbid (severe) obesity due to excess calories
CPT/HCPCS: A9577; C8929; C9113; J1200; J2405; J2550; J3360; J7030; J7512; Q9957; Q9967

== ENCOUNTER 2016-12-29 10:52 | Inpatient (IN) | payer MEDICARE ==
[~2016-12-29] VITALS: Ht 170.2 cm; Wt 166.2 kg
--- NOTE | ~2016-12-29 | HP ---
PATIENT'S NAME: EDUAR ALCALA [facility] AGE: 56 Y [address] ROOM: [place] [address] LOCATION: [facility] ADMIT DATE: 12/29/2016 History & Physical DISCHARGE DATE: FAMILY PHYSICIAN: PHYSICIAN, UNKNOWN ATTENDING PHYSICIAN: VIVI SANDERS DATE OF SERVICE: 12/29/2016 CHIEF COMPLAINT: Dizziness, nausea and vomiting with increased fatigue since this morning. HISTORY OF PRESENT ILLNESS: This is a pleasant 56-year-old male with a recent past medical history notable for a large cerebellar stroke approximately 5 cm in the PICA distribution, and recently discharged from our facility on December 03, after he initially presented at that time with severe dizziness, falling to the right, nausea, vomiting, and was admitted briefly. He was started on a statin and aspirin at that visit and while echocardiogram and workup were noted to have a dilated left atrium, there was no atrial fibrillation noted during stay, and patient recently underwent a stress test with Dr. Almanza, which he has not heard the results of yet. He also has COPD, obstructive sleep apnea, and essential hypertension as well as recently diagnosed diabetes, type 2. The patient notes symptoms started this morning. However, he has had several days of feeling generally unwell. He saw his PCP last week and was started on Augmentin for a "chest cold," and reports this is helping some, but still feels that his dizziness and nausea and vomiting have progressed. He denies any recent fevers or chills. He was nauseated earlier, though this has abated. No chest pain. Mild increased shortness of breath. No abdominal pain, bowel or bladder concerns, or leg swelling. He is otherwise feeling well and notes that these symptoms are much milder than his prior stroke presentation, though similar. PAST MEDICAL HISTORY: 1. Essential hypertension. 2. Dilated left atrium on echocardiogram. 3. Recent cardiac stress test with results unknown though patient feels, was not told of positive results. 4. Type 2 diabetes with A1c of 6.5, recent diagnosis. 5. Chronic hypoxic respiratory failure. 6. Obstructive sleep apnea, on CPAP. 7. Morbid obesity. 8. Chronic pain disorder. 9. COPD of uncertain stage with no recent PFTs available. 10. Recent anxiety. PAST SURGICAL HISTORY: [facility]GE: 56 Y [address] ROOM: [address] [address] LOCATION: [facility] ADMIT DATE: 12/29/2016 History & Physical DISCHARGE DATE: FAMILY PHYSICIAN: PHYSICIAN, UNKNOWN ATTENDING PHYSICIAN: VIVI SANDERS Reviewed and noncontributory to current presentation. FAMILY HISTORY: Mother had diabetes and coronary artery disease, otherwise, reviewed and noncontributory. SOCIAL HISTORY: Prior use of chewing tobacco, though currently denies tobacco or alcohol use. ALLERGIES: NO KNOWN DRUG ALLERGIES. MEDICATIONS: Currently being reconciled. Notable for recent additions of: 1. Losartan for hypertension and metformin for diabetes. 2. Lipitor at 80 mg dose and aspirin were started during recent stay. REVIEW OF SYSTEMS: A complete review of systems was performed and negative except as noted above in the HPI. PHYSICAL EXAMINATION: VITAL SIGNS: Temperature is actually just afebrile, pulse 83, blood pressure 185/97, improved to 140 systolic while in the ED, respiratory rate is 22, and saturating 94% on room air. GENERAL: The patient is in no apparent distress, lying comfortably in the emergency department. HEENT: Head is normocephalic and atraumatic. Eyes are pupils equal, round, and reactive to light. Extraocular muscles intact. No scleral icterus. No conjunctival injection. ENT; moist mucous membranes with serous effusion noted behind the left TM. Right TM with small scar from healing prior rupture with recent otitis media per patient's recollection. Nares are edematous without significant purulence appreciated. Posterior oropharynx is erythematous. NECK: Supple. No lymphadenopathy. No JVD. No thyromegaly. CARDIOVASCULAR: Regular rate and rhythm without murmurs, rubs, or gallops appreciated today. 2+ pulses bilaterally in radial and dorsalis pedis. LUNGS: Respirations; diffuse expiratory wheeze with prolonged expiratory phase. No crackles or rhonchi. Normal respiratory effort. Saturating well on room air. ABDOMEN: Obese, nontender, and soft, with normoactive bowel sounds. EXTREMITIES: Without appreciable edema. NEUROLOGIC: The patient is without dysmetria. No nystagmus. Minimally slowed with [id number] testing and fyhg-dr-[id number] testing. Strength is 5/5 bilaterally in the upper and lower extremities. The patient is currently denying significant sensory deficits, though does have some ongoing dizziness. PATIENT'S NAME: EDUAR ALCALA [facility] AGE: 56 Y [address] ROOM: [address] [address] LOCATION: [facility] ADMIT DATE: 12/29/2016 History & Physical DISCHARGE DATE: FAMILY PHYSICIAN: PHYSICIAN, UNKNOWN ATTENDING PHYSICIAN: VIVI SANDERS LABORATORY DATA AND IMAGING STUDIES: White count is 7.9, hemoglobin 14.4, and platelets 296,000. Sodium 140, potassium 4.4, chloride 106, bicarbonate 28, BUN 12, creatinine 0.8, glucose 124, calcium 8.6, total protein 6.8, albumin 3.2, AST 24, ALT 14, alkaline phosphatase 121, total bilirubin 0.4, and magnesium is 2.2. Troponin, negative. EKG shows sinus rhythm. CT of the head shows an evolving left cerebellar hypodensity consistent with known prior stroke. Otherwise, no acute findings. ASSESSMENT: 1. Recurrent stroke symptoms in the setting of recent large cerebellar posterior inferior cerebellar artery distribution stroke. 2. Chronic obstructive pulmonary disease with acute exacerbation, given increased sputum production and shortness of breath. 3. Essential hypertension. 4. Obstructive sleep apnea. 5. Recently diagnosed diabetes mellitus, type 2. PLAN: We will admit the patient to inpatient status while working out the etiology of nausea, vomiting, and dizziness. The patient does have upper respiratory symptoms and middle ear fluid on exam, which may also be confounding the history given his prior stroke. We will monitor on telemetry with neurological checks, and transition the patient's antibiotics from Augmentin to Levaquin with addition of prednisone given the significant wheeze on exam. We will hold metformin for diabetes in favor of sliding scale insulin during his stay. We will continue home CPAP for obstructive sleep apnea as well as aspirin and Lipitor for secondary stroke prevention. Chest x-ray in the emergency department looks to be under penetrated. We will repeat AP and lateral films to further evaluate for possibility of pneumonia though patient does remain afebrile and saturating well on room air. We will also add on a procalcitonin. We will ask PT and OT to see. Code Status: The patient is a full code. Lovenox 40 subcutaneous daily for DVT prophylaxis. I spent 35 minutes on date of admission in review of records and in face-to- face evaluation of the patient. VIVI SANDERS MD PATIENT'S NAME: EDUAR ALCALA [facility] AGE: 56 Y [address] ROOM: [place] [address] LOCATION: [facility] ADMIT DATE: 12/29/2016 History & Physical DISCHARGE DATE: FAMILY PHYSICIAN: PHYSICIAN, UNKNOWN ATTENDING PHYSICIAN: VIVI SANDERS/sintial /[id number] D: [id number] T: [id number] HISTORY & PHYSICAL
--- NOTE | ~2016-12-29 | ER ---
PATIENT'S NAME: EDUAR ALCALA [facility] AGE: 56 Y [address] ROOM: [place] [address] LOCATION: [facility] ADMIT DATE: 12/29/2016 ER/Outpatient Report DISCHARGE DATE: FAMILY PHYSICIAN: PHYSICIAN, UNKNOWN ATTENDING PHYSICIAN: VIVI BERNAL Time of Arrival: 1052 hours. Time of Evaluation/Seen: 1055 hours. IDENTIFICATION: A 56-year-old male. CHIEF COMPLAINT: Dizziness. HISTORY OF PRESENT ILLNESS: The patient is a 56-year-old male who recently had a cerebellar stroke and said he is feeling like he is having symptoms of stroke again at this time. He said for the last 2 days, he just has felt more tired and not his usual self. Last night, he had his usual residual dizziness, but this morning woke up, more severely dizzy associated with nausea. He describes it as a spinning sensation. He has also had some congestion and is on antibiotics for the congestion, but he is about done with those. He has had no fever or chills. No headache. No vision changes. He is dizzy and just generally tired. He has colored nasal drainage. No sore throat. No neck pain. No chest pain. He has a nonproductive cough. No shortness of breath. No chest pain. No abdominal pain. He does have nausea and vomiting. No dysuria. No increased frequency of urination. No numbness or tingling. PAST MEDICAL HISTORY: ALLERGIES: MORPHINE. CURRENT MEDICATIONS: 1. Metformin. They do not have the dose on that. 2. Hydromorphone 4 mg q.8 hours p.r.n. 3. Ibuprofen 800 mg q.6 hours p.r.n. 4. Fentanyl patch 25 mcg q.72 hours. 5. Aspirin 81 mg daily. 6. Carbidopa and levodopa 25/100, 1 tablet at bedtime. 7. Calcium carbonate 2 tablets every 3 hours as needed. 8. Losartan, I do not know the dose. 9. Crestor. 10. O2 at 3 L at bedtime along with CPAP. [facility] 56 Y [address] ROOM: [place] [address] LOCATION: [facility] ADMIT DATE: 12/29/2016 ER/Outpatient Report DISCHARGE DATE: FAMILY PHYSICIAN: PHYSICIAN, UNKNOWN ATTENDING PHYSICIAN: VIVI BERNAL MEDICAL PROBLEMS: 1. Cerebellar stroke, November 30 through hospitalized. 2. Hypertension. 3. Chronic hypoxic respiratory failure with nocturnal hypoxemia on O2 at bedtime. 4. Obstructive sleep apnea. 5. Obesity hypoventilation syndrome. 6. Morbid obesity. 7. Chronic pain syndrome. 8. Diabetes mellitus, type 2, new onset. 9. Ascending aorta moderately dilated at 4.4 cm. 10. COPD. FAMILY HISTORY: Positive for diabetes and coronary artery disease. SOCIAL HISTORY: The patient lives near [place]. He is . Tobacco use, denies. Alcohol use, denies. Drug use, denies. REVIEW OF SYSTEMS: GENERAL: He has had no fever or chills. HEENT: No headache. No blurred vision or double vision. He does have dizziness. He has nasal congestion and drainage. No sore throat. No neck pain or stiffness. CARDIOVASCULAR/RESPIRATORY: No chest pain. He does have a cough, nonproductive. No shortness of breath. He recently had a stress test with Dr. Almanza, but has not received the results of that. He said that they thought that maybe his stroke was caused from atrial fibrillation, but he has no documented atrial fibrillation. He had an echocardiogram on November 30; normal left ventricular contractility, EF of 55% to 60%, diastolic function indeterminate, and the left atrium mildly dilated. The ascending aorta moderately dilated with a maximum diameter of 4.4 cm. GASTROINTESTINAL: No abdominal pain. He has nausea and vomiting. No diarrhea. No constipation. No blood in his stools. No dark, tarry, or black stools. GENITOURINARY: No dysuria. MUSCULOSKELETAL: He does have chronic pain. SKIN: No rashes. ENDOCRINE: Recent onset of diabetes. He said his blood sugars at home have been good. He did have a hemoglobin A1c on November 30 of 6.5. No history of thyroid abnormalities. HEMATOLOGIC: No history of bleeding diathesis or blood clots. PATIENT'S NAME: EDUAR ALCALA [facility] AGE: 56 Y [address] ROOM: [place] [address] LOCATION: [facility] ADMIT DATE: 12/29/2016 ER/Outpatient Report DISCHARGE DATE: FAMILY PHYSICIAN: PHYSICIAN, UNKNOWN ATTENDING PHYSICIAN: VIVI BERNAL PHYSICAL EXAMINATION: VITAL SIGNS: Weight 169 kg. Blood pressure 185/97, pulse 53, respiratory rate is 22, temperature 96.6, and saturations 94% on room air. GENERAL: A 56-year-old male, in no acute distress. HEENT: Head; normocephalic and atraumatic. Ears; TMs translucent in both ears. Nose; mucosa pink. No lesions or drainage. Mouth; no lesions. Pharynx; benign. NECK: Supple. No lymphadenopathy. No carotid bruits. No thyromegaly. LUNGS: Clear to auscultation. HEART: Regular rate and rhythm. No murmur, rub, or gallop. ABDOMEN: Protuberant. Bowel sounds present. Soft, nondistended. No hepatosplenomegaly. No palpable masses. Nontender. SKIN: The patient has some excoriated scabbed lesions, but no acute skin findings. EXTREMITIES: Trace of edema. No calf tenderness. NEUROLOGIC: The patient is alert and oriented x4. Cranial nerves 2 through 12 grossly intact. Motor strength 5/5 throughout. Sensation is intact to light touch. [place] Coma Score is 15. NIH Stroke Scale score is 0, and a copy is included in the chart. LABORATORY DATA AND IMAGING STUDIES: Hemoglobin 14.4, hematocrit 40.8, platelets 296,000, and white count 7.9 with a normal differential. INR of 1.02. Sodium 140, potassium 4.4, chloride 106, CO2 of 28, BUN 12, creatinine 0.8, and blood sugar 124. Liver enzymes, normal. Magnesium 2.2, CPK 191, CK-MB 1.9, and troponin I is less than 0.040. EKG; sinus bradycardia at 54 beats per minute, no acute ST elevation or depression, and no change when compared with prior EKG on 11/30/2016. Head CT without contrast, mild atrophy, no hemorrhage, and evolving hypodensity in the inferior left cerebellar hemisphere. One-view chest x-ray, poor inspiratory effort. Unable to see the details of the left lung base, cannot rule out infiltrate. IMPRESSION AND PLAN: Dizziness and nausea with history of recent cerebellar stroke. 1. Plan for admission per hospitalist. Dr. Bernal evaluated the patient in the emergency room. The patient is out of the window for tPA. Time atkinson, he woke up with the symptoms at 7:00 a.m. and presents to the emergency room at 11:00 a.m. He is 4 hours outside the wake up time, but he did wake up with them so we do not know the onset and patient's NIH Stroke Scale score is zero. 2. Hypertension. 3. Morbid obesity. 4. New-onset diabetes mellitus. 5. Mildly dilated left atrium. PATIENT'S NAME: EDUAR ALCALA [facility] AGE: 56 Y [address] ROOM: [place] [address] LOCATION: [facility] ADMIT DATE: 12/29/2016 ER/Outpatient Report DISCHARGE DATE: FAMILY PHYSICIAN: PHYSICIAN, UNKNOWN ATTENDING PHYSICIAN: VIVI BERNAL 6. Chronic hypoxic respiratory failure. 7. Nocturnal hypoxia. 8. Obstructive sleep apnea. 9. Ascending aorta dilated at 4.4 cm. 10. Chronic pain syndrome. The patient remained stable throughout his stay here in the emergency room and Dr. Bernal evaluated him in the ER. ZITA SANCHEZ MD CAR/modl /[id number] d: 12/29/16 1637 t: 01/01/17 0856, OUTPATIENT REPORT
[~2016-12-29 10:52] MED LIST: ASPIRIN EC325 MG PO; DESYREL50 MG PO; DILAUDID 4MG4 MG PO; DURAGESIC 25MC25 MCG TOP; FLEXERIL10 MG PO; LIPITOR80 MG PO; MOTRIN800 MG PO; SINEMET 25-1001 EACH PO; TUMS REGULAR ST1 TAB PO; XANAX0.25 MG PO
[2016-12-29 11:15] LABS: BASOPHIL # 0.1 K/uL (0.0-0.2); BASOPHIL % 0.8 %; EOSINOPHIL # 0.4 K/uL (0.0-0.5); EOSINOPHIL % 4.6 %; HEMATOCRIT 40.8 % (37.0-53.0); HEMOGLOBIN 14.4 g/dL (12.0-17.0); IMMATURE GRANULOCYTE % 0.3 %; LYMPHOCYTE # 1.8 K/uL (0.8-4.0); LYMPHOCYTE % 22.9 %; MCH 30.5 pg (27.0-34.0); MCHC 35.3 gm/dL (32.0-36.5); MCV 86.4 fl (83.0-98.0); MONOCYTE # 0.6 K/uL (0.0-1.0); MONOCYTE % 7.2 %; MPV 9.7 fl (9.4-12.4); NEUTROPHIL # (ANC) 5.1 K/uL (1.4-9.0); NEUTROPHIL % 64.2 %; NRBC % 0 /100WBC (0-0.00); PLATELET COUNT 296 K/uL (150-450); RBC 4.72 M/uL (4.00-6.00); RDW-CV 12.3 % (11.9-14.6); WBC 7.9 K/uL (4.0-11.0)
[2016-12-29 11:25] LABS: INR - (THERAPEUTIC) 1.02 (0.92-1.07); PROTIME 10.7 SECONDS (9.8-11.4); PTT 28 SECONDS (25-32)
[2016-12-29 11:33] LABS: ALBUMIN 3.2 gm/dL (3.5-5.0); ALK PHOS 121 IU/L (33-138); ALT 14 IU/L (12-78); ANION GAP 10.4 (10.0-19.0); AST 24 IU/L (10-40); BLOOD UREA NITROGEN 12 mg/dL (6-24); CALCIUM 8.6 mg/dL (8.5-10.5); CHLORIDE 106 mMol/L (96-110); CO2 28 mMol/L (22-32); CPK 191 IU/L (35-332); CREATININE 0.8 mg/dL (0.6-1.3); MAGNESIUM 2.2 mg/dL (1.8-2.6); POTASSIUM 4.4 mMol/L (3.7-5.1); SODIUM 140 mMol/L (135-145); TOTAL BILIRUBIN 0.4 mg/dL (0.0-1.5); TOTAL PROTEIN 6.8 g/dL (6.0-8.4)
[2016-12-29] MEDS ORDERED: COZAAR50 MG PO (14:36)
[2016-12-29] MEDS ORDERED: GLUCOPHAGE XR750 M1 PO (14:36)
[2016-12-29] MEDS ORDERED: LIPITOR80 MG PO (14:36)
--- NOTE | 2016-12-29 16:03 | NUR ---
PATIENT ARRIVED FROM ER AT 1300. CAME IN WITH DIZZINESS, AND ALSO HAD SOME NAUSEA THIS AM. NEVER DID HAVE VOMITING THOUGH. HE HAD A RECENT STROKE IN NOVEMBER WITH SIMILAR SYPMTOMS SO HE WANTED TO MAKE SURE IT WASNT A STROKE. PATIENT HAS BEEN HAVING SOME SINUS CONGESTION AND WAS RECENTLY STARTED ON AN ANTIBIOTIC. DR SANDERS THINKS THIS COULD BE CAUSING HIS SYMPTOMS. HE DOES HAVE HISTORY OF DM, HTN, COPD. PATIENT WEARS CPAP AT NIGHT. LUNGS CLEAR AND DIM. HE IS A/O X 3. FOLLOWS COMMANDS. STRONG AND EQUAL STRENGTH. DENIES NUMBNESS/TINGLING. NIHSS =0. HEART RATE RUNS NAUN 50-60'S. EDEMA TO LOWER EXTREMITIES. DID HAVE SOME DIZZINESS UPON ADMISSION AND THEN AGAIN WHEN HE WENT DOWNSTAIRS FOR CHEST XRAY. DR SANDERS AWARE AND JUST WANTS TO MONITOR. IF HIS DIZZINESS GETS WORSE OR DOESNT GO AWAY HE WOULD LIKE CALLED AND THEN MAY POSSIBLY ORDER AN MRI. IV INFUSING IN RT HAND, NORMAL SALINE A 100MLS/HR X 2 LITERS. UP WITH STANDBY ASSIST. DIABETIC DIET WITH ACHS ACCUCHECKS. PLAN FOR HOME TMRW.
--- NOTE | 2016-12-30 01:01 | NUR ---
Significant Event: ALERT/ORIENTED X3. REPORTS SLIGHT DIZZINESS AT TIMES. NO NAUSEA. STRONG THROUGHOUT. NIHSS 0. HR 50S-70S. EDEMA TO BILATERAL LOWER EXTREMITIES. HYPERTENSIVE, SBP 160S-180S. 3L NC, OWN CPAP AT [facility]. LUNGS CLEAR AND DIM. BOWEL SOUNDS ACTIVE. VOIDS IN BATHROOM . UP WITH 1 ASSIST. REMIND TO CALL FOR HELP TO BATHROOM. RIGHT HAND PIV INFUSING AT 100ML/HR. Follow up: ALERT DR. SANDERS IF DIZZINESS/NAUSEA WORSENS. POSSIBLY HOME TODAY.
[2016-12-30 06:03] LABS: BASOPHIL % 0.4 %; EOSINOPHIL % 0.3 %; HEMATOCRIT 39.2 % (37.0-53.0); HEMOGLOBIN 13.5 g/dL (12.0-17.0); IMMATURE GRANULOCYTE # 0.2 K/uL (0.0-0.3); IMMATURE GRANULOCYTE % 1.4 %; LYMPHOCYTE # 1.8 K/uL (0.8-4.0); LYMPHOCYTE % 16.6 %; MCH 29.7 pg (27.0-34.0); MCHC 34.4 gm/dL (32.0-36.5); MCV 86.2 fl (83.0-98.0); MONOCYTE # 0.8 K/uL (0.0-1.0); MONOCYTE % 6.9 %; MPV 9.8 fl (9.4-12.4); NEUTROPHIL # (ANC) 8.3 K/uL (1.4-9.0); NEUTROPHIL % 74.4 %; NRBC % 0 /100WBC (0-0.00); PLATELET COUNT 310 K/uL (150-450); RBC 4.55 M/uL (4.00-6.00); RDW-CV 12.3 % (11.9-14.6); WBC 11.1 K/uL (4.0-11.0)
[2016-12-30 06:23] LABS: ANION GAP 12.3 (10.0-19.0); BLOOD UREA NITROGEN 11 mg/dL (6-24); CALCIUM 8.7 mg/dL (8.5-10.5); CHLORIDE 107 mMol/L (96-110); CO2 27 mMol/L (22-32); CREATININE 0.7 mg/dL (0.6-1.3); POTASSIUM 4.3 mMol/L (3.7-5.1); SODIUM 142 mMol/L (135-145)
[2016-12-30] MEDS ORDERED: GLUCOPHAGE500 MG PO (14:45)
--- NOTE | 2016-12-30 16:03 | NUR ---
PATIENT ALERT AND ORIENTED X3. PATIENT WAS READY TO DISCHARGE AND WAS GETTING INPATIENT WITH DISCHARGE PAPERWORK TO BE DONE. SAID THAT HE WOULD LEAVE WITH OUT THEM. FINISHED PAPERWORK AND WENT OVER WITH PATIENT, INCLUDING DISCHARGE INSTRUCTIONS AND MEDICATION. VERBALIZED UNDERSTANDING. REFUSED FLU VACCINE. IV DISCONTINUED. UP SBA. VSS ON ROOM. DISCHARGE HOME WITH . NIHSS 0. DENIED PAIN.
[2017-01-02] MEDS ORDERED: CPAP INH (16:50)
[2017-01-02] MEDS ORDERED: LOPRESSOR25 MG PO (16:50)
[2017-01-02] MEDS ORDERED: OXYGEN M-15 INH (16:51)
== END 2016-12-30 15:25 | disposition disaster alternative care site (69) | DRG 149 ==
LOC: GMED 10:52 → GICU 11:58
PROVIDERS: Family Medicine; ADMIT Internal Medicine
DX: R42 Dizziness and giddiness (principal); J96.11 Chronic respiratory failure with hypoxia; J44.1 Chronic obstructive pulmonary disease with (acute) exacerbation; Z68.43 Body mass index [BMI] 50.0-59.9, adult; E66.01 Morbid (severe) obesity due to excess calories; I10 Essential (primary) hypertension; E11.9 Type 2 diabetes mellitus without complications; I77.819 Aortic ectasia, unspecified site; G47.33 Obstructive sleep apnea (adult) (pediatric); G89.4 Chronic pain syndrome; E86.0 Dehydration; F41.9 Anxiety disorder, unspecified; Z86.73 Personal history of transient ischemic attack (TIA), and cerebral infarction without residual deficits; Z87.891 Personal history of nicotine dependence; Z79.82 Long term (current) use of aspirin; Z79.84 Long term (current) use of oral hypoglycemic drugs
CPT/HCPCS: J1650; J7030; J7512